=== PATIENT | male | born 1955 | race Two or more races ===

== ENCOUNTER 2019-12-13 09:32 | Day surgery (SDC) | payer BC ==
[~2019-12-13] VITALS: Ht 193 cm; Wt 113.0 kg
[~2019-12-13 09:32] MED LIST: ATOR10 PO; CHLO25B PO; Celebrex200 MG PO; ELIQUIS5 MG PO; LOSA25 PO; METF500 PO; METO25 PO
--- NOTE | 2019-12-13 11:37 | NUR ---
12/13/19 1136 Darya Munoz PT AND UPDATED OF DELAY IN PROCEDURE START TIME DUE TO PREVIOUS CASES TAKING LONGER THAN EXPECTED. CALL LIGHT WITHIN REACH. AT BEDSIDE.
== END 2019-12-13 13:57 | disposition home or self-care (01) ==
LOC: ORSCSDS 09:32
DX: K50.90 Crohn's disease, unspecified, without complications (principal); D12.2 Benign neoplasm of ascending colon; D12.4 Benign neoplasm of descending colon; K64.8 Other hemorrhoids; I10 Essential (primary) hypertension; E11.9 Type 2 diabetes mellitus without complications; I48.91 Unspecified atrial fibrillation; Z79.01 Long term (current) use of anticoagulants; Z79.84 Long term (current) use of oral hypoglycemic drugs; Z79.899 Other long term (current) drug therapy; Z87.891 Personal history of nicotine dependence
CPT/HCPCS: 82947; 88305; J2704; J7040; J7120

== ENCOUNTER 2022-02-09 10:53 | Day surgery (SDC) | payer MEDICARE, BC ==
[~2022-02-09] VITALS: Ht 193 cm; Wt 117.9 kg
[2022-02-09] MEDS ORDERED: Flecainide Acet50 MG (11:08)
--- NOTE | 2022-02-09 12:56 | NUR ---
02/09/22 1256 SANDRA CARRINGTON MIXED WITH NACL FOR POLYP REMOVAL TOTAL 5ML USED PCP [facility] SH[facility] [place], [place]
== END 2022-02-09 13:19 | disposition home or self-care (01) ==
LOC: ORSCSDS 10:53
PROVIDERS: Student in an Organized Health Care Education/Training Program
PROC: 0DBL8ZX Excision of Transverse Colon, Via Natural or Artificial Opening Endoscopic, Diagnostic (ICD-10-PCS; principal; 2022-02-09 12:00)
PROC: 0DBE8ZX Excision of Large Intestine, Via Natural or Artificial Opening Endoscopic, Diagnostic (ICD-10-PCS; principal; 2022-02-09 12:00)
DX: K50.90 Crohn's disease, unspecified, without complications (principal); D12.3 Benign neoplasm of transverse colon; Z86.010 Personal history of colon polyps; K64.8 Other hemorrhoids; I10 Essential (primary) hypertension; E78.5 Hyperlipidemia, unspecified; E11.9 Type 2 diabetes mellitus without complications; I48.91 Unspecified atrial fibrillation; Z79.01 Long term (current) use of anticoagulants; Z79.84 Long term (current) use of oral hypoglycemic drugs; Z79.899 Other long term (current) drug therapy; Z87.891 Personal history of nicotine dependence
CPT/HCPCS: 82947; 88305; J2704; J7120

== ENCOUNTER 2023-03-29 11:15 | Day surgery (SDC) | payer MEDICARE, BC ==
[~2023-03-29] VITALS: Ht 193 cm; Wt 113.6 kg
[~2023-03-29 11:15] MED LIST changes: +Flecainide Acet50 MG
[2023-03-29] MEDS ORDERED: VITAMIN D5000 UNIT (11:28)
[2023-03-29] MEDS ORDERED: JARDIANCE25 MG (11:28)
[2023-03-29] MEDS ORDERED: FURO20 (11:28)
[2023-03-29] MEDS ORDERED: STELARA90 MG/1 ML (11:28)
== END 2023-03-29 13:40 | disposition home or self-care (01) ==
LOC: ORSCSDS 11:15
PROVIDERS: Student in an Organized Health Care Education/Training Program
PROC: 0DBC8ZX Excision of Ileocecal Valve, Via Natural or Artificial Opening Endoscopic, Diagnostic (ICD-10-PCS; principal; 2023-03-29 12:30)
PROC: 0DBL8ZX Excision of Transverse Colon, Via Natural or Artificial Opening Endoscopic, Diagnostic (ICD-10-PCS; principal; 2023-03-29 12:30)
PROC: 0DBK8ZX Excision of Ascending Colon, Via Natural or Artificial Opening Endoscopic, Diagnostic (ICD-10-PCS; principal; 2023-03-29 12:30)
PROC: 0DBP8ZX Excision of Rectum, Via Natural or Artificial Opening Endoscopic, Diagnostic (ICD-10-PCS; principal; 2023-03-29 12:30)
DX: K50.90 Crohn's disease, unspecified, without complications (principal); Z86.010 Personal history of colon polyps; D12.2 Benign neoplasm of ascending colon; D12.3 Benign neoplasm of transverse colon; K62.1 Rectal polyp; K64.8 Other hemorrhoids; K62.89 Other specified diseases of anus and rectum; K52.9 Noninfective gastroenteritis and colitis, unspecified; E11.9 Type 2 diabetes mellitus without complications; I10 Essential (primary) hypertension; E78.5 Hyperlipidemia, unspecified; Z87.891 Personal history of nicotine dependence; Z79.01 Long term (current) use of anticoagulants; Z79.84 Long term (current) use of oral hypoglycemic drugs; Z79.899 Other long term (current) drug therapy
CPT/HCPCS: 82947; 88305; J2704; J7120